=== PATIENT | female | born 1950 | race Caucasian/White ===

== ENCOUNTER → 2021-01-23 | Outpatient (REF) | payer MEDICARE, BC, OTHER ==
[2021-01-23 12:19] LABS: APPEARANCE, URINE CLEAR (CLEAR); BACTERIA, URINE AUTO NEGATIVE (NEGATIVE); BILIRUBIN, URINE AUTO NEGATIVE (NEGATIVE); BLOOD, URINE BLOOD NEGATIVE (NEGATIVE); COLOR, URINE YELLOW (YELLOW); GLUCOSE, URINE (UA) AUTO NEGATIVE (NEGATIVE); KETONE, URINE AUTO NEGATIVE (NEGATIVE); LEUKOCYTE ESTERASE, URINE AUTO NEGATIVE (NEGATIVE); NITRITE, URINE AUTO NEGATIVE (NEGATIVE); PROTEIN, URINE AUTO NEGATIVE (NEGATIVE); RBC, URINE AUTO 2 /HPF (0-3); SPECIFIC GRAVITY URINE AUTO 1.011 (1.002-1.035); SQUAMOUS EPITHELIAL CELL UR AU 0 /HPF (0-6); UROBILINOGEN, URINE AUTO 0.2 mg/dL (0.0-2.0); WBC, URINE AUTO 0 /HPF (0-3)
[2021-01-23 12:21] LABS: BASO # 0.1 10^3/uL (0.0-0.2); BASO % 1.1 % (0.0-1.0); EOS # 0.1 10^3/uL (0.0-0.5); EOS % 1.1 % (0.0-3.0); HEMATOCRIT 43.9 % (36.0-47.0); HEMOGLOBIN 14.6 g/dl (12.0-15.5); LYMPH # 2.2 10^3/uL (1.5-5.0); LYMPH % 35.3 % (24.0-44.0); MEAN CORPUSCULAR HEMOGLOBIN 30.2 pg (27.0-33.0); MEAN CORPUSCULAR HGB CONC 33.3 g/dl (32.0-36.5); MEAN CORPUSCULAR VOLUME 90.7 fl (80.0-96.0); MONO # 0.3 10^3/uL (0.0-0.8); MONO % 5.2 % (2.0-8.0); NEUTROPHILS # 3.5 10^3/uL (1.5-8.5); PLATELET COUNT, AUTOMATED 272 10^3/uL (150-450); RED BLOOD COUNT 4.84 10^6/uL (4.00-5.40); WHITE BLOOD COUNT 6.2 10^3/uL (4.0-10.0)
[2021-01-23 12:43] LABS: TOTAL PROTEIN,RANDOM URINE 10.2 MG/DL (0.0-12.0)
[2021-01-23 12:54] LABS: ALBUMIN 3.9 GM/DL (3.2-5.2); ALT/SGPT 23 U/L (12-78); BILIRUBIN,DIRECT < 0.1 MG/DL (0.0-0.2); BILIRUBIN,TOTAL 0.4 MG/DL (0.2-1.0); BLOOD UREA NITROGEN 15 MG/DL (7-18); C REACTIVE PROTEIN QUANTITATIV 0.41 MG/DL (0.00-0.30); CALCIUM LEVEL 10.1 MG/DL (8.8-10.2); CARBON DIOXIDE LEVEL 29 MEQ/L (21-32); CHLORIDE LEVEL 108 MEQ/L (98-107); COMPLEMENT C3 161 MG/DL (90-180); COMPLEMENT C4 52 MG/DL (10-40); CPK CREATINE PHOSPHOKINASE 88 U/L (26-192); CREATININE FOR GFR 0.87 MG/DL (0.55-1.30); GLOMERULAR FILTRATION RATE > 60.0 (>39); GLUCOSE, FASTING 88 MG/DL (70-100); IRON (FE) 63 UG/DL (50-170); MAGNESIUM LEVEL 2.3 MG/DL (1.8-2.4); PHOSPHORUS LEVEL 3.5 MG/DL (2.5-4.9); POTASSIUM SERUM 3.9 MEQ/L (3.5-5.1); SODIUM LEVEL 142 MEQ/L (136-145); VITAMIN B12 LEVEL 637 PG/ML (247-911)
[2021-01-23 13:11] LABS: ERYTHROCYTE SEDIMENTATION RATE 42 mm/hr (0-30)
== END ==
LOC: M SFHCRHEU 10:14
PROVIDERS: ATTEND Internal Medicine
DX: R76.8 Other specified abnormal immunological findings in serum (principal); M79.10 Myalgia, unspecified site; R70.0 Elevated erythrocyte sedimentation rate; Z79.899 Other long term (current) drug therapy
CPT/HCPCS: 80048; 80076; 81001; 82306; 82550; 82570; 82607; 83540; 83735; 84100; 84156; 84443; 85025; 85652; 86140; 86160; 86162; G0463

== ENCOUNTER → 2021-02-03 | Outpatient (CLI) | payer MEDICARE, OTHER ==
--- NOTE | 2021-02-03 13:21 | REP ---
INDICATION: LUMBAGO WITH SCIATICA, UNSPECIFIED SIDE. COMPARISON: None. TECHNIQUE: Seven views of the lumbar spine including flexion extension lateral views are obtained. FINDINGS: Lateral radiographs demonstrate a grade 2, 10 mm, L5-S1 spondylolisthesis due to degenerative disc and osteoarthritic facet disease. There is sacralization of the L5 transverse processes bilaterally. Advanced osteoarthritic facet disease is noted at L5-S1 and L4-5 bilaterally and moderate facet changes are noted at L3-4. There is no subluxation or instability at this or the other levels on flexion extension views. There is limited flexion extension range of motion. Degenerative disc changes are also noted at L4-5 and L2-3 and L1-2. Vacuum phenomena are seen at each of these levels. There is reactive sclerosis at the L2-3 disc level. There is a levoconvex curve on the AP radiograph in the lumbar spine. Psoas margins are symmetric. There are clips in right upper quadrant the abdomen. IMPRESSION: Moderate to advanced degenerative spondylosis changes. There is a grade 2 10 mm L5-S1 spondylolisthesis due to degenerative disc and osteoarthritic facet disease. There is no evidence of pars defect. A levoconvex scoliotic curvature is present. <Electronically signed by [employer] > 02/03/21 [id number]
== END ==
LOC: M RAD 11:01
PROVIDERS: ATTEND Internal Medicine
DX: M54.40 Lumbago with sciatica, unspecified side (principal)

== ENCOUNTER 2023-09-22 11:48 | Day surgery (SDC) | payer MEDICARE, BC, OTHER ==
[~2023-09-22] VITALS: Ht 154.9 cm; Wt 78.8 kg
[~2023-09-22 11:48] MED LIST: AMLO1TAB25 PO; LOSA50TA28 PO; METO1TAB7 PO; PANT40TA29 PO; SIMV10TA21 PO
[2023-09-22] MEDS: NS 1,000 ML IV ONE (12:10)
[2023-09-22] MEDS ORDERED: propofoL 200 MG/20 ML VIAL As Ordered ONE (12:39)
[2023-09-22] MEDS ORDERED: LIDOCAINE 2% 100MG/5ML SDV (FOR ANES.) As Ordered ONE (12:39)
[2023-09-22] MEDS ORDERED: fentaNYL 100 MCG/2 ML INJECTION As Ordered ONE (12:39)
[2023-09-22 13:49] VITALS: TEMP 97.6
[2023-09-22 14:10] VITALS: BP 126/73; O2SAT 95
== END 2023-09-22 14:23 | disposition home or self-care (01) ==
LOC: M OPP 11:48
PROVIDERS: ATTEND Internal Medicine Gastroenterology
DX: Z12.11 Encounter for screening for malignant neoplasm of colon (principal); Z86.010 Personal history of colon polyps; K64.0 First degree hemorrhoids; K57.30 Diverticulosis of large intestine without perforation or abscess without bleeding; K31.7 Polyp of stomach and duodenum; K22.89 Other specified disease of esophagus; K29.50 Unspecified chronic gastritis without bleeding; R12 Heartburn; Z79.02 Long term (current) use of antithrombotics/antiplatelets; Z79.899 Other long term (current) drug therapy; Z88.0 Allergy status to penicillin; Z88.1 Allergy status to other antibiotic agents; Z88.2 Allergy status to sulfonamides; Z88.5 Allergy status to narcotic agent
CPT/HCPCS: 43239; 88305; G0105; J3010